=== PATIENT | female | born 1965 | race Caucasian/White ===

== ENCOUNTER → 2018-01-09 | Outpatient (CLI) | payer OTHER ==
--- NOTE | 2018-01-10 09:25 | MM ---
Reason for exam: screening (asymptomatic). Last mammogram was performed 2 years and 4 months ago. Physical Findings: A clinical breast exam by your physician is recommended on an annual basis and results should be correlated with mammographic findings. MG Screening Mammo w CAD Bilateral CC and MLO view(s) were taken. XCCL view(s) were taken of the right breast. Prior study comparison: September 07, 2015, bilateral MG screening mammo w CAD. February 03, 2011, bilateral digital screening mammo w/CAD. The breast tissue is heterogeneously dense. This may lower the sensitivity of mammography. There is no discrete abnormality. No significant changes when compared with prior studies. ASSESSMENT: Negative, BI-RAD 1 RECOMMENDATION: Routine screening mammogram of both breasts in 1 year.
== END | disposition home or self-care (01) ==
LOC: RADMAMWWP 10:43
PROVIDERS: ATTEND Family Medicine
DX: Z12.31 Encounter for screening mammogram for malignant neoplasm of breast (principal)
CPT/HCPCS: 77067

== ENCOUNTER → 2018-07-08 | Outpatient (CLI) | payer OTHER ==
--- NOTE | 2018-07-08 16:00 | XR ---
EXAMINATION TYPE: XR lumbosacral spine min 4V DATE OF EXAM: 07/08/2018 COMPARISON: None HISTORY: Low back pain x2 months TECHNIQUE: Five-view lumbar spine FINDINGS: Facet degenerative changes present L4-5 and L5-S1. Disc heights are preserved. Vertebral kevin dy heights are preserved. Spondylosis is present. There 5 lumbar-type vertebral bodies. The pedicles are intact. IMPRESSION: 1. Mild facet degenerative change lower lumbar spine.
== END | disposition home or self-care (01) ==
LOC: RADXRMAIN 11:11
PROVIDERS: ATTEND Family Medicine
DX: M47.816 Spondylosis without myelopathy or radiculopathy, lumbar region (principal)
CPT/HCPCS: 72110

== ENCOUNTER → 2019-09-29 | Outpatient (CLI) | payer OTHER ==
--- NOTE | 2019-09-29 10:28 | XR ---
EXAMINATION TYPE: XR chest 2V DATE OF EXAM: 09/29/2019 COMPARISON: NONE HISTORY: Chest pain TECHNIQUE: Frontal and lateral views of the chest are obtained. FINDINGS: There is no focal air space opacity, pleural effusion, or pneumothorax seen. Slight pulmo nary hyperinflation that likely relates to degree of inspiration rather than COPD. Correlation with p ulmonary function tests could be performed. The cardiac silhouette size is within normal limits. Th e osseous structures are intact. Partially visualized cervical fusion device. Very minimal degenerati ve changes of the thoracic spine. IMPRESSION: No acute cardiopulmonary process.
--- NOTE | 2019-09-30 10:15 | MM ---
Reason for exam: screening (asymptomatic). Last mammogram was performed 1 year and 9 months ago. History: Patient is postmenopausal. Taking progesterone for 1 year. Physical Findings: A clinical breast exam by your physician is recommended on an annual basis and results should be correlated with mammographic findings. MG Screening Mammo w CAD Bilateral CC and MLO view(s) were taken. Prior study comparison: January 09, 2018, bilateral MG screening mammo w CAD. September 07, 2015, bilateral MG screening mammo w CAD. The breast tissue is heterogeneously dense. This may lower the sensitivity of mammography. There is no discrete abnormality. No significant changes when compared with prior studies. ASSESSMENT: Negative, BI-RAD 1 RECOMMENDATION: Routine screening mammogram of both breasts in 1 year.
== END | disposition home or self-care (01) ==
LOC: RADMAMWWP 09:03
PROVIDERS: ATTEND Family Medicine
DX: Z12.31 Encounter for screening mammogram for malignant neoplasm of breast (principal); R07.9 Chest pain, unspecified
CPT/HCPCS: 71046; 77067

== ENCOUNTER 2019-10-02 11:28 | Observation (INO) | payer OTHER ==
[2019-10-02] MEDS ORDERED: ASPIRIN 81 MG PO STA (11:48)
[2019-10-02] MEDS ORDERED: NITROGLYCERIN OINT 1 INCH/GM PACKET TOPICAL STA (11:56)
--- NOTE | 2019-10-02 11:58 | ED ---
General Adult HPI - General Chief complaint: Chest Pain Stated complaint: Chest pain Time Seen by Provider: 10/02/19 11:40 Source: patient, RN notes reviewed Mode of arrival: ambulatory Limitations: no limitations - History of Present Illness Initial comments: Patient is a pleasant 54-year-old female presenting to the emergency Department with complaints of chest discomfort. Onset of symptoms was prior to arrival. Symptoms were somewhat sober. Patient had sharp discomfort in her chest and did feel sweaty. No associated dyspnea or nausea. Patient states discomfort did wrap around the right side towards the back. Discomfort is near resolved at this point. Discomfort was severe for around 5 or 6 minutes. Patient has had some milder anterior chest discomfort over the past couple of weeks and is scheduled for stress test. No leg pain or leg swelling. No cough or fever. - Related Data Allergies Allergy/AdvReac Type Severity Reaction Status Date / Time codeine Allergy Dyspnea Verified 10/02/19 11:34 Review of Systems ROS Statement: Those systems with pertinent positive or pertinent negative responses have been documented in the HPI. ROS Other: All systems not noted in ROS Statement are negative. Constitutional: Denies: fever Eyes: Denies: eye pain ENT: Denies: ear pain Respiratory: Denies: cough, dyspnea Cardiovascular: Reports: as per HPI, chest pain Endocrine: Denies: fatigue Gastrointestinal: Denies: abdominal pain, nausea Genitourinary: Denies: dysuria Musculoskeletal: Reports: as per HPI Skin: Denies: rash Neurological: Denies: weakness Past Medical History Past Medical History: No Reported History History of Any Multi-Drug Resistant Organisms: None Reported Past Surgical History: Breast Surgery Past Psychological History: No Psychological Hx Reported Smoking Status: Former smoker Past Alcohol Use History: None Reported Past Drug Use History: Unable to Obtain General Exam Limitations: no limitations General appearance: alert, in no apparent distress Head exam: Present: normocephalic Eye exam: Present: normal appearance Neck exam: Present: normal inspection Respiratory exam: Present: normal lung sounds bilaterally. Absent: chest wall tenderness Cardiovascular Exam: Present: regular rate, normal rhythm Expanded Peripheral pulses: 2+: Radial (R), Radial (L), Dorsalis Pedis (R), Dorsalis Pedis (L) GI/Abdominal exam: Present: soft. Absent: distended, tenderness Extremities exam: Present: normal inspection. Absent: pedal edema, calf tenderness Back exam: Present: normal inspection Neurological exam: Present: alert Psychiatric exam: Present: normal affect, normal mood Skin exam: Present: normal color Course Vital Signs 10/02/19 10/02/19 10/02/19 11:34 12:00 12:10 Temperature 97.4 F L Pulse Rate 74 79 83 Respiratory 16 18 15 Rate Blood Pressure 133/67 118/65 120/85 O2 Sat by Pulse 100 99 99 Oximetry 10/02/19 10/02/19 12:20 12:50 Temperature Pulse Rate 78 78 Respiratory 15 19 Rate Blood Pressure 136/67 113/89 O2 Sat by Pulse 99 98 Oximetry EKG Findings - EKG Comments: EKG Findings:: Normal sinus rhythm 69. CA 128. QRS 90. QT 400. QTc 420. Normal axis. Normal QRS. No acute ST change. Medical Decision Making - Medical Decision Making Patient reevaluated and resting comfortably in bed, symptom-free. Patient updated on results and plan. Case was discussed in detail with Dr. Braswell, will admit covering for Dr. Orourke. - Lab Data Result diagrams: 10/02/19 12:04 10/02/19 12:04 Lab Results 10/02/19 10/02/19 10/02/19 Range/Units 12:04 12:04 12:04 WBC 4.6 (3.8-10.6) k/uL RBC 4.17 (3.80-5.40) m/uL Hgb 12.8 (11.4-16.0) gm/dL Hct 37.9 (34.0-46.0) % MCV 91.0 (80.0-100.0) fL MCH 30.8 (25.0-35.0) pg MCHC 33.9 (31.0-37.0) g/dL RDW 11.8 (11.5-15.5) % Plt Count 198 (150-450) k/uL Neutrophils % 55 % Lymphocytes % 36 % Monocytes % 5 % Eosinophils % 2 % Basophils % 0 % Neutrophils # 2.6 (1.3-7.7) k/uL Lymphocytes # 1.7 (1.0-4.8) k/uL Monocytes # 0.2 (0-1.0) k/uL Eosinophils # 0.1 (0-0.7) k/uL Basophils # 0.0 (0-0.2) k/uL PT 11.0 (9.0-12.0) sec INR 1.0 (<1.2) APTT 26.5 (22.0-30.0) sec D-Dimer 0.21 (<0.60) mg/L FEU Sodium 140 (137-145) mmol/L Potassium 4.1 (3.5-5.1) mmol/L Chloride 105 (98-107) mmol/L Carbon Dioxide 28 (22-30) mmol/L Anion Gap 7 mmol/L BUN 13 (7-17) mg/dL Creatinine 0.89 (0.52-1.04) mg/dL Est GFR (CKD-EPI)AfAm 84 (>60 ml/min/1.73 sqM) Est GFR (CKD-EPI)NonAf 73 (>60 ml/min/1.73 sqM) Glucose 105 H (74-99) mg/dL Calcium 9.6 (8.4-10.2) mg/dL Magnesium 2.0 (1.6-2.3) mg/dL Total Bilirubin 0.5 (0.2-1.3) mg/dL AST 18 (14-36) U/L ALT 18 (9-52) U/L Alkaline Phosphatase 52 (38-126) U/L Troponin I (0.000-0.034) ng/mL Total Protein 7.1 (6.3-8.2) g/dL Albumin 4.5 (3.5-5.0) g/dL 10/02/19 Range/Units 12:04 WBC (3.8-10.6) k/uL RBC (3.80-5.40) m/uL Hgb (11.4-16.0) gm/dL Hct (34.0-46.0) % MCV (80.0-100.0) fL MCH (25.0-35.0) pg MCHC (31.0-37.0) g/dL RDW (11.5-15.5) % Plt Count (150-450) k/uL Neutrophils % % Lymphocytes % % Monocytes % % Eosinophils % % Basophils % % Neutrophils # (1.3-7.7) k/uL Lymphocytes # (1.0-4.8) k/uL Monocytes # (0-1.0) k/uL Eosinophils # (0-0.7) k/uL Basophils # (0-0.2) k/uL PT (9.0-12.0) sec INR (<1.2) APTT (22.0-30.0) sec D-Dimer (<0.60) mg/L FEU Sodium (137-145) mmol/L Potassium (3.5-5.1) mmol/L Chloride (98-107) mmol/L Carbon Dioxide (22-30) mmol/L Anion Gap mmol/L BUN (7-17) mg/dL Creatinine (0.52-1.04) mg/dL Est GFR (CKD-EPI)AfAm (>60 ml/min/1.73 sqM) Est GFR (CKD-EPI)NonAf (>60 ml/min/1.73 sqM) Glucose (74-99) mg/dL Calcium (8.4-10.2) mg/dL Magnesium (1.6-2.3) mg/dL Total Bilirubin (0.2-1.3) mg/dL AST (14-36) U/L ALT (9-52) U/L Alkaline Phosphatase (38-126) U/L Troponin I <0.012 (0.000-0.034) ng/mL Total Protein (6.3-8.2) g/dL Albumin (3.5-5.0) g/dL Disposition Clinical Impression: Chest pain Disposition: ADMITTED IP [facility] Is patient prescribed a controlled substance at d/c from ED?: No Referrals: Colt Orourke DO [Primary Care Provider] - 1-2 days Decision Time: 13:00
[2019-10-02 12:21] LABS: Basophils % (A) 0 %; Eosinophils # (A) 0.1 k/uL (0-0.7); Eosinophils % (A) 2 %; HCT 37.9 % (34.0-46.0); HGB 12.8 gm/dL (11.4-16.0); Lymphocytes # (A) 1.7 k/uL (1.0-4.8); Lymphocytes % (A) 36 %; MCH 30.8 pg (25.0-35.0); MCHC 33.9 g/dL (31.0-37.0); Mean Platelet Volume 6.9; Monocytes # (A) 0.2 k/uL (0-1.0); Monocytes % (A) 5 %; Neutrophils # (A) 2.6 k/uL (1.3-7.7); Neutrophils % (A) 55 %; Platelet Count 198 k/uL (150-450); RBC 4.17 m/uL (3.80-5.40); RDW 11.8 % (11.5-15.5); WBC 4.6 k/uL (3.8-10.6)
[2019-10-02 12:26] LABS: Albumin 4.5 g/dL (3.5-5.0); Calcium 9.6 mg/dL (8.4-10.2); Potassium 4.1 mmol/L (3.5-5.1); Total Bilirubin 0.5 mg/dL (0.2-1.3); Total Protein 7.1 g/dL (6.3-8.2)
--- NOTE | 2019-10-02 12:35 | XR ---
EXAMINATION TYPE: XR chest 2V DATE OF EXAM: 10/02/2019 COMPARISON: 09/29/2019 HISTORY: Chest pain TECHNIQUE: Frontal and lateral views of the chest are obtained. FINDINGS: There is no focal air space opacity, pleural effusion, or pneumothorax seen. The cardiac silhouette size is within normal limits. The osseous structures are intact. Partial visualization o f a cervical fusion device. Minimal degenerative changes of the spine. IMPRESSION: No acute cardiopulmonary process.
[2019-10-02 12:39] LABS: D-Dimer 0.21 mg/L FEU (<0.60); Partial Thromboplastin Time 26.5 sec (22.0-30.0)
[2019-10-02] MEDS ORDERED: NITROGLYCERIN SL TABS 0.4 MG TAB SUBLINGUAL PRN (13:00)
[2019-10-02] MEDS ORDERED: MAG HYDROX/AL HYDROX/SIMETH 30 ML, HYOSCYAMINE ELIXIR 10 ML, LIDOCAINE VISCOUS 2% 10 ML PO PRN ×3 (15:39)
--- NOTE | 2019-10-02 15:39 | P.CRDCN ---
History of Present Illness History of present illness: This is a pleasant 54-year-old female past medical history significant for gastroesophageal reflux disease. She denies prior history of coronary artery disease, hypertension, dyslipidemia or diabetes mellitus. Both of her parents had premature coronary artery disease. Her mother required a quadruple bypass in her 40s. [facility] an out patient stress test secondary to chest discomfort that has been going on for the previous 2-3 months. She presented to the office this morning for her scheduled stress test with 9 out of 10 right anterior wall chest discomfort that radiated around to the right thoracic region. There was no radiation to the arm, neck or jaw. This was associated with diaphoresis and headache. She denies symptoms of shortness of breath, dizziness or palpitations. This episode lasted about 25 minutes and ultimately subsided on its own. She states this has been going on intermittently for the previous 2-3 months. No specific aggravating or alleviating factors. She is quite active and exercises 3 times per week. She does cardio and yoga and never has chest pain with activity. This episode of chest pain that happened this morning was on an empty stomach as she was nothing by mouth for her stress test. EKG on arrival to the emergency department revealed sinus mechanism with no acute ST or T-wave abnormalities. Chest x-ray is negative for an acute cardiopulmonary process. Laboratory data reviewed, CBC unremarkable, d-dimer 0.21, sodium 140, potassium 4.1, creatinine 0.89, magnesium 2.0, troponin negative x1. She takes no daily cardiac medications and is never had a cardiac evaluation in the past. At the time of my exam: CONSTITUTIONAL: Denies fever. Denies chills. EYES: Denies blurred vision. Denies vision changes. Denies eye pain. EARS, NOSE, MOUTH & THROAT: Denies headache. Denies sore throat. Denies ear pain. CARDIOVASCULAR: Denies chest pain. Denies shortness of breath. Denies orthopnea. Denies PND. Denies palpitations. RESPIRATORY: Denies cough. GASTROINTESTINAL: Denies abdominal pain. Denies diarrhea. Denies constipation. Denies nausea. Denies vomiting. MUSCULOSKELETAL: Denies myalgias. INTEGUMENTARY: Denies pruitis. Denies rash. NEUROLOGIC: Denies numbness. Denies tingling. Denies weakness. PSYCHIATRIC: Denies anxiety. Denies depression. ENDOCRINE: Denies fatigue. Denies weight change. Denies polydipsia. Denies polyurina. GENITOURINARY: Denies burning, hematuria or urgency with micturation. HEMATOLOGIC: Denies history of anemia. Denies bleeding. Blood pressure 129/75 heart rate 71 afebrile maintaining oxygen saturation on room air GENERAL: This is a 54-year-old female in no apparent distress at the time of my examination. HEENT: Head is atraumatic, normocephalic. Pupils are equal, round. Sclerae anicteric. Conjunctivae are clear. Mucous membranes of the mouth are moist. Neck is supple. There is no jugular venous distention. No carotid bruit is heard. LUNGS: Clear to auscultation no wheezes, rales or rhonchi. No chest wall tenderness is noted on palpation or with deep breathing. HEART: Regular rate and rhythm without murmurs, rubs or gallops. S1 and S2 heard. ABDOMEN: Soft, nontender. Bowel sounds are heard. No organomegaly noted. EXTREMITIES: No evidence of peripheral edema and no calf tenderness noted. VASCULAR: Radial and dorsalis pedis pulses palpated, no evidence of clubbing. NEUROLOGIC: Patient is awake, alert and oriented x3. ASSESSMENT Chest pain, atypical for angina. Family history of premature coronary artery disease PLAN Continue to obtain serial enzymes to rule out an acute coronary event. Obtain 2-D echocardiogram and Doppler study to assess cardiac structure and function. Nothing by mouth after midnight tonight for possible cardiac testing in the morning if needed. Further recommendations to follow based upon clinical course. Thank you kindly for this consultation. Nurse Practitioner note has been reviewed, I agree with a documented findings and plan of care. Patient was seen and examined. Past Medical History Past Medical History: GERD/Reflux, Pneumonia Additional Past Medical History / Comment(s): Occasional GERD, IBS. History of Any Multi-Drug Resistant Organisms: None Reported Past Surgical History: Breast Surgery, Tubal Ligation Additional Past Surgical History / Comment(s): R breast lumpectomy-benign, colonoscopies/benign polypectomy Past Anesthesia/Blood Transfusion Reactions: Motion Sickness Smoking Status: Former smoker - Past Family History Father Additional Family Medical History / Comment(s): Father has a pacemaker. He is an exsmoker. Mother Family Medical History: Cancer, CVA/TIA, Diabetes Mellitus, Myocardial Infarction ([place]) Additional Family Medical History / Comment(s): Mother had a [place] in her 40s. She had a CVA. She had lung cancer. She is . Medications and Allergies Home Medications Medication Instructions Recorded Confirmed Type Omeprazole 20 mg PO DAILY 10/02/19 10/02/19 History Allergies Allergy/AdvReac Type Severity Reaction Status Date / Time codeine Allergy Dyspnea Verified 10/02/19 13:13 Physical Exam Vitals: Vital Signs Temp Pulse Pulse Resp BP BP Pulse Ox 10/02/19 13:50 97.9 F 71 18 129/75 100 10/02/19 12:50 78 19 113/89 98 10/02/19 12:20 78 15 136/67 99 10/02/19 12:10 83 15 120/85 99 10/02/19 12:00 79 18 118/65 99 10/02/19 11:34 97.4 F L 74 16 133/67 100 Intake and Output 10/02/19 10/02/19 10/02/19 06:59 14:59 22:59 Other: Weight 66.678 kg Results 10/02/19 12:04 10/02/19 12:04 Cardiac Enzymes 10/02/19 10/02/19 Range/Units 12:04 12:04 AST 18 (14-36) U/L Troponin I <0.012 (0.000-0.034) ng/mL Coagulation 10/02/19 Range/Units 12:04 PT 11.0 (9.0-12.0) sec APTT 26.5 (22.0-30.0) sec CBC 10/02/19 Range/Units 12:04 WBC 4.6 (3.8-10.6) k/uL RBC 4.17 (3.80-5.40) m/uL Hgb 12.8 (11.4-16.0) gm/dL Hct 37.9 (34.0-46.0) % Plt Count 198 (150-450) k/uL Comprehensive Metabolic Panel 10/02/19 Range/Units 12:04 Sodium 140 (137-145) mmol/L Potassium 4.1 (3.5-5.1) mmol/L Chloride 105 (98-107) mmol/L Carbon Dioxide 28 (22-30) mmol/L BUN 13 (7-17) mg/dL Creatinine 0.89 (0.52-1.04) mg/dL Glucose 105 H (74-99) mg/dL Calcium 9.6 (8.4-10.2) mg/dL AST 18 (14-36) U/L ALT 18 (9-52) U/L Alkaline Phosphatase 52 (38-126) U/L Total Protein 7.1 (6.3-8.2) g/dL Albumin 4.5 (3.5-5.0) g/dL Current Medications Generic Name Dose Route Start Last Admin Trade Name Freq PRN Reason Stop Dose Admin Aspirin 325 mg 10/03/19 09:00 Aspirin PO DAILY NCIHO Nitroglycerin 0.4 mg 10/02/19 13:00 Nitrostat SUBLINGUAL Q5M PRN Chest Pain Nitroglycerin 1 inch 10/02/19 18:00 Nitro-Bid Oint TOPICAL Q6HR NICHO Intake and Output 10/02/19 10/02/19 10/02/19 06:59 14:59 22:59 Other: Weight 66.678 kg Patient Weight 10/03/19 06:59 Weight 66.678 kg 10/02/19 12:04 10/02/19 12:04
[2019-10-02] MEDS ORDERED: NITROGLYCERIN OINT 1 INCH/GM PACKET TOPICAL SCH (18:00)
--- NOTE | 2019-10-02 19:50 | ECHOF ---
Referral Reason:cp MEASUREMENTS -------- HEIGHT: 167.6 cm WEIGHT: 66.7 kg BP: 129/75 RVIDd: 2.3 cm (< 3.3) IVSd: 0.6 cm (0.6 - 1.1) LVIDd: 4.7 cm (3.9 - 5.3) LVPWd: 0.7 cm (0.6 - 1.1) IVSs: 1.2 cm LVIDs: 2.7 cm LVPWs: 1.3 cm LAESV Index (A-L): 18.39 ml/m Ao Diam: 3.2 cm (2.0 - 3.7) AV Cusp: 2.3 cm (1.5 - 2.6) LA Diam: 2.5 cm (2.7 - 3.8) MV EXCURSION: 25.662 mm (> 18.000) MV EF SLOPE: 201 mm/s (70 - 150) EPSS: 1.0 cm MV E Nestor: 1.00 m/s MV DecT: 209 ms MV A Nestor: 0.70 m/s MV E/A Ratio: 1.44 RAP: 5.00 mmHg RVSP: 13.46 mmHg TAPSE: 26.36 mm FINDINGS -------- Sinus rhythm. This was a technically good study. The left ventricular size is normal. Left ventricular wall thickness is normal. Overall left vent ricular systolic function is normal with, an EF between 55 - 60 %. The diastolic filling pattern is normal for the age of the patient 8.34. The right ventricle is normal in size. The right ventricular systolic function is normal. The left atrial size is normal. Normal LA size by volume 22+/-6 ml/m2. The right atrial size is normal. Interatrial and interventricular septum intact. The aortic valve is trileaflet and appears structurally normal. The mitral valve is normal. There is trace mitral regurgitation. The tricuspid valve appears structurally normal. Trace tricuspid regurgitation present. Right umesh tricular systolic pressure is normal at < 35 mmHg. There is no pulmonic regurgitation present. The aortic root size is normal. Normal inferior vena cava with normal inspiratory collapse consistent with estimated right atrial pre ssure of 5 mmHg. There is no pericardial effusion. CONCLUSIONS -------- 1. Sinus rhythm. 2. This was a technically good study. 3. The left ventricular size is normal. 4. Left ventricular wall thickness is normal. 5. Overall left ventricular systolic function is normal with, an EF between 55 - 60 %. 6. The diastolic filling pattern is normal for the age of the patient 8.34 7. The right ventricle is normal in size. 8. The right ventricular systolic function is normal. 9. The left atrial size is normal. 10. Normal LA size by volume 22+/-6 ml/m2. 11. The right atrial size is normal. 12. Interatrial and interventricular septum intact. 13. The aortic valve is trileaflet and appears structurally normal. 14. The mitral valve is normal. 15. There is trace mitral regurgitation. 16. The tricuspid valve appears structurally normal. 17. Trace tricuspid regurgitation present. 18. Right ventricular systolic pressure is normal at < 35 mmHg. 19. There is no pulmonic regurgitation present. 20. The aortic root size is normal. 21. Normal inferior vena cava with normal inspiratory collapse consistent with estimated right atrial pressure of 5 mmHg. 22. There is no pericardial effusion. LEARNING AND DEVELOPMENT COORDINATOR: Laura Monroy RDCS
[2019-10-02] MEDS: ACETAMINOPHEN TAB 325 MG TAB PO PRN (21:16)
--- NOTE | 2019-10-02 21:42 | P.HPIM ---
History of Present Illness H&P Date: 10/02/19 Chief Complaint: Right-sided chest pain History of presenting complaint: This is a very pleasant 54-year-old patient of Dr. Hanane Orourke. Patient was scheduled for routine stress test today had gone to the outside machinist's office. She certainly doesn't look right-sided chest pressure over the breast area and went down to the back. Patient became clammy developed a headache. Positive for about 10 minutes. The niece to him about 30 minutes. Patient was sent down to the ER. There was no dizziness no lightheadedness no fever no chills. Did not feel tired. Patient normally rather active and goes to gym rather regularly with her . She does have a strong family history with both appearance of his heart disease. She was admitted for the unstable angina. Was given Nitropaste is given her significant headache. No further episode of chest pain. Just feels "half an hour after the initial episode. Patient denies doing any excessive musculoskeletal activity. Review of systems: GEN.: None EYES: None HEENT: None NECK: None RESPIRATORY: None CARDIOVASCULAR: As above GASTROINTESTINAL: Intermittent stomach from IBS GENITOURINARY: None MUSCULOSKELETAL: None LYMPHATICS: None HEMATOLOGICAL: None PSYCHIATRY: None NEUROLOGICAL: None Past medical history: GERD, irritable bowel syndrome Family history: Both appearance of heart disease Social history: Does not smoke or drink cold. . Does work for a [employer]. Physical examination: VITAL SIGNS: 97.4, 74, 16, 133/67, 100% on room air GENERAL: BMI 23.7, sleep sitting up in bed, tired distress. EYES: Pupils equal. Conjunctiva normal. HEENT: External appearance of nose and ears normal, oral cavity grossly normal. NECK: JVD not raised; masses not palpable. HEART: First and second heart sounds are normal; no edema. LUNGS: Respiratory rate normal; clear to auscultation. ABDOMEN: Soft, nontender, liver spleen not palpable, no masses palpable. PSYCH: Alert and oriented x3; mood and affect normal. NEUROLOGICAL: Cranial nerves grossly intact; no facial asymmetry, power and sensation grossly intact. LYMPHATICS: No lymph nodes palpable in the axilla and neck MUSCULOSKELETAL: Pain in the right chest wall is not reproducible INVESTIGATIONS, reviewed in the clinical context: White count 4.6 hemoglobin 12.8 platelets 198 potassium 4.1 creatinine 0.95 Troponin I 2 negative EKG tracing personally reviewed by me-normal sinus rhythm Chest x-ray film personally reviewed by me-lung barrientos clear 2-D echo with EF 55-60%, no wall motion abnormality Assessment: -New onset of right-sided chest pain lasted for about half an hour. Associated with feeling clammy headache tired. Need to rule out a cardiac cause -Headache as a side effect of nitrates -GERD -Irritable bowel syndrome Plan: Nitrates were added. Continue the patient headache. Tylenol will be given. Patient is currently chest pain-free. Cardiology consulted. Care was discussed with the patient. Questions were answered. Past Medical History Past Medical History: GERD/Reflux, Pneumonia Additional Past Medical History / Comment(s): Occasional GERD, IBS. History of Any Multi-Drug Resistant Organisms: None Reported Past Surgical History: Breast Surgery, Tubal Ligation Additional Past Surgical History / Comment(s): R breast lumpectomy-benign, colonoscopies/benign polypectomy Past Anesthesia/Blood Transfusion Reactions: Motion Sickness Smoking Status: Former smoker - Past Family History Father Additional Family Medical History / Comment(s): Father has a pacemaker. He is an exsmoker. Mother Family Medical History: Cancer, CVA/TIA, Diabetes Mellitus, Myocardial Infarction ([place]) Additional Family Medical History / Comment(s): Mother had a [place] in her 40s. She had a CVA. She had lung cancer. She is . Medications and Allergies Home Medications Medication Instructions Recorded Confirmed Type Omeprazole 20 mg PO DAILY 10/02/19 10/02/19 History Allergies Allergy/AdvReac Type Severity Reaction Status Date / Time codeine Allergy Dyspnea Verified 10/02/19 13:13 Physical Exam Vitals: Vital Signs Temp Pulse Pulse Resp BP BP BP 10/02/19 19:32 98.2 F 64 18 95/57 10/02/19 13:50 97.9 F 71 18 129/75 10/02/19 12:50 78 19 113/89 10/02/19 12:20 78 15 136/67 10/02/19 12:10 83 15 120/85 10/02/19 12:00 79 18 118/65 10/02/19 11:34 97.4 F L 74 16 133/67 Pulse Ox 10/02/19 19:32 97 10/02/19 13:50 100 10/02/19 12:50 98 10/02/19 12:20 99 10/02/19 12:10 99 10/02/19 12:00 99 10/02/19 11:34 100 Intake and Output 10/02/19 10/02/19 10/02/19 06:59 14:59 22:59 Other: Weight 66.678 kg Results CBC & Chem 7: 10/02/19 12:04 10/02/19 12:04 Labs: Abnormal Lab Results - Last 24 Hours (Table) 10/02/19 Range/Units 12:04 Glucose 105 H (74-99) mg/dL Thrombosis Risk Factor Assmnt - Choose All That Apply Any of the Below Risk Factors Present?: Yes Each Factor Represents 1 point: Age 41-60 years Other Risk Factors: No Other congenital or acquired thrombophilia - If yes, enter type in comment: No Thrombosis Risk Factor Assessment Total Risk Factor Score: 1 Thrombosis Risk Factor Assessment Level: Low Risk
[2019-10-03] MEDS: ACETAMINOPHEN TAB 325 MG TAB PO PRN (03:50)
[2019-10-03 04:13] LABS: Cholesterol 188 mg/dL (<200); HDL Cholesterol 53 mg/dL (40-60); LDL Cholesterol,Calculated 118 mg/dL (0-99); Triglycerides 87 mg/dL (<150)
[2019-10-03] MEDS ORDERED: PANTOPRAZOLE 40 MG TABLET PO STA (07:38)
[2019-10-03 08:43] VITALS: BP 105/67; PULSE 60; RESP 16; TEMP 98.1
[2019-10-03] MEDS ORDERED: ASPIRIN 81 MG PO SCH (09:00)
[2019-10-03] MEDS ORDERED: ASPIRIN 325 MG TAB PO SCH (09:00)
--- NOTE | 2019-10-03 13:59 | PN ---
PROGRESS NOTE Mrs Meneses as atypical chest pain, probable gastroesophageal reflux disease and sees Dr. Orourke in the outpatient setting. She was set up for a stress test in our office. She came to the office and complained of 9/10 chest pain and was therefore advised to go to the hospital instead. She came in yesterday. Her pain was resolved. The pain was located on the right side of the chest and going to the lower back. The pain has resolved. Troponins are normal. EKG is unremarkable. She is resting comfortably without symptoms. There is a certain amount of anxiety. She has had some anxiety attacks in the past. However, I reviewed with her the EKG. Laboratory data and my physical exam was unremarkable. If she has no further symptoms after she ambulate the hallways, I will discharge and perform a stress test tomorrow. But if she has any symptoms, I will keep her in the hospital and either I will do a stress test or a cardiac cath. I discussed my thoughts in detail with the patient. Vital signs are stable. Her blood pressure is very well controlled. It is about 110/70. Pulse rate is 68 per minute. There is no JVD or carotid bruit. S1-S2 heard normally. Lungs are clear. Abdomen is soft, nontender. Lower extremities reveal normal pulses. No edema. Central nervous system is normal. IMPRESSION: 1. Atypical chest pain. 2. Anxiety. 3. Question of gastroesophageal reflux disease. RECOMMENDATIONS: I am recommending increased activity. If she has no further symptoms, she can be discharged. We will do a stress test as outpatient. Thank you very much for the consult. MMODL / IJN: [id number] /
--- NOTE | 2019-10-04 17:27 | P.DS ---
Providers Date of admission: 10/02/19 13:01 Expected date of discharge: 10/03/19 Attending physician: Misha Braswell Consults: 10/02/19 13:01 Consult Physician Urgent Consulting Provider: Palomo Morgan Consult Reason/Comments: cp Do you want consulting provider notified?: Yes Primary care physician: Colt Orourke [facility] Course: Chief Complaint: Right-sided chest pain Hospital course: This is a very pleasant 54-year-old patient of Dr. Hanane Orourke. Patient was scheduled for routine stress test today had gone to the environmental engineering professor's office. She certainly doesn't look right-sided chest pressure over the breast area and went down to the back. Patient became clammy developed a headache. Positive for about 10 minutes. The niece to him about 30 minutes. Patient was down to the ER. There was no dizziness no lightheadedness no fever no chills. Did not feel tired. Patient normally rather active and goes to gym rather regularly with her . She does have a strong family history with both appearance of his heart disease. She was admitted for the unstable angina. Was given Nitropaste is given her significant headache. No further episode of chest pain. Just feels "half an hour after the initial episode. Patient denies doing any excessive musculoskeletal activity. Patient also recently's joint yoga classes. Is fairly active and also goes to gym. Patient did well in the hospital. No further episodes. It is possibly musculoskeletal pain. Seen by Dr. SID Mary. Outpatient stress test will be done. Care was discussed with the patient and the . Consultation: Dr. SID Mary from cardiology Physical examination: VITAL SIGNS: 98.1, 60, 16, 105/67, 98% room air GENERAL: Sitting at the edge of bed, comfortable. EYES: Pupils equal. Conjunctiva normal. HEENT: External appearance of nose and ears normal, oral cavity grossly normal. NECK: JVD not raised; masses not palpable. HEART: First and second heart sounds are normal; no edema. LUNGS: Respiratory rate normal; clear to auscultation. ABDOMEN: Soft, nontender, liver spleen not palpable, no masses palpable. PSYCH: Alert and oriented x3; mood and affect normal. NEUROLOGICAL: Cranial nerves grossly intact; no facial asymmetry, power and sensation grossly intact. INVESTIGATIONS, reviewed in the clinical context: White count 4.6 hemoglobin 12.8 platelets 198 potassium 4.1 creatinine 0.95 Troponin I 2 negative EKG tracing personally reviewed by me-normal sinus rhythm Chest x-ray film personally reviewed by me-lung barrientos clear 2-D echo with EF 55-60%, no wall motion abnormality Assessment: -New onset of right-sided chest pain lasted for about half an hour. Associated with feeling clammy headache tired. Need to rule out a cardiac cause -Headache as a side effect of nitrates -GERD -Irritable bowel syndrome Disposition: Home Patient Condition at Discharge: Stable Plan - Discharge Summary Discharge Rx Participant: No New Discharge Prescriptions: Continue Omeprazole 20 mg PO DAILY Discharge Medication List Omeprazole 20 mg PO DAILY 10/02/19 [History] Follow up Appointment(s)/Referral(s): Colt Orourke DO [Primary Care Provider] - 1-2 days Discharge Disposition: HOME SELF-CARE
== END 2019-10-03 12:15 | disposition home or self-care (01) ==
LOC: EC 11:28 → 1SOBS 13:01
PROVIDERS: ADMIT Hospitalist; ATTEND Hospitalist
DX: R07.89 Other chest pain (principal); R23.1 Pallor; R61 Generalized hyperhidrosis; F41.9 Anxiety disorder, unspecified; R51 Headache; K58.9 Irritable bowel syndrome, unspecified; K21.9 Gastro-esophageal reflux disease without esophagitis; Z79.899 Other long term (current) drug therapy; Z88.5 Allergy status to narcotic agent; Z87.891 Personal history of nicotine dependence; Z98.1 Arthrodesis status; Z87.01 Personal history of pneumonia (recurrent); Z86.010 Personal history of colon polyps; Z98.51 Tubal ligation status; Z82.49 Family history of ischemic heart disease and other diseases of the circulatory system; Z81.2 Family history of tobacco abuse and dependence; Z82.3 Family history of stroke; Z83.3 Family history of diabetes mellitus; Z80.1 Family history of malignant neoplasm of trachea, bronchus and lung
CPT/HCPCS: 36415; 71046; 80053; 80061; 83735; 84484; 85025; 85379; 85610; 85730; 93005; 93306; 99285

== ENCOUNTER 2021-12-13 08:49 | Day surgery (SDC) | payer BC, OTHER ==
[2021-12-11 09:03] VITALS: BMI 24.2
[~2021-12-13 08:49] MED LIST: LACTATED RINGERS 1,000 ML IV SCH
[2021-12-13 09:03] VITALS: TEMP 97.9
[2021-12-13] MEDS ORDERED: LACTATED RINGERS 1,000 ML IV ONE (09:14)
[2021-12-13] MEDS ORDERED: PROPOFOL 10 MG/ML 20 ML VIAL IV ONE (09:57)
[2021-12-13] MEDS ORDERED: LIDOCAINE 1% INJ 10MG/ML (20 ML MDV) ONE (09:57)
--- NOTE | 2021-12-13 10:13 | P.PCN ---
Date of Procedure: 12/13/21 Procedure(s) Performed: BRIEF HISTORY: Patient is a 56-year-old pleasant white femalescheduled for an elective colonoscopy as a part of screening for colorectal neoplasia. PROCEDURE PERFORMED: Colonoscopy. PREOPERATIVE DIAGNOSIS: [Screening for colon cancer IV sedation per Anesthesia. PROCEDURE: After informed consent was obtained, the patient, was brought into the endoscopy unit. IV sedation was administered by Anesthesia under continuous monitoring. Digital rectal examination was normal. Initially the Olympus CF-160 flexible video colonoscope was then inserted in the rectum, gradually advanced into the cecum without any difficulty. Careful examination was performed as the scope was gradually being withdrawn. Ileocecal valve and the appendiceal orifice were visualized and appeared normal. Prep was excellent. Mucosa of the cecum, ascending colon, transverse colon, descending colon, sigmoid colon, and rectum appeared normal. Retroflexion was performed in the rectum and no lesions were seen. The patient tolerated the procedure well. IMPRESSION: Normal-appearing colon from rectum to cecum with no evidence of colorectal neoplasia . RECOMMENDATIONS: Findings of this examination were discussed with the patient as well as her family. She was advised to have a repeat screening colonoscopy in 10 years
[2021-12-13 10:43] VITALS: BP 98/58; PULSE 70; RESP 16
== END 2021-12-13 11:04 | disposition home or self-care (01) ==
LOC: ORWHC2ENDO 08:49
PROVIDERS: ATTEND Internal Medicine Gastroenterology
DX: Z12.11 Encounter for screening for malignant neoplasm of colon (principal); Z88.5 Allergy status to narcotic agent; K21.9 Gastro-esophageal reflux disease without esophagitis; K58.9 Irritable bowel syndrome, unspecified
CPT/HCPCS: J2001; J2704; G0121